=== PATIENT | female | born 1980 | race Caucasian/White ===

== ENCOUNTER 2017-12-08 21:09 | Emergency (ER) | payer BC, OTHER ==
--- NOTE | 2017-12-08 21:44 | PDOC ---
Rapid Medical Evaluation Time Seen by Provider: 12/08/17 21:41 Medical Evaluation: 12/08/17 21:41 The patient presents with a chief complaint of: Dizziness, BP high at home for five days, Had chest pain this afternoon, none upon arrival. I have performed a brief in-person evaluation of this patient. Pertinent physical exam findings: vss, [unremarkable] I have ordered the following: EKG The patient will proceed to the ED for further evaluation. Discharge Disposition - Diagnosis High blood pressure - Referrals - Patient Instructions - Post Discharge Activity
[2017-12-08 21:45] VITALS: TEMP 98.5; BMI 21.6
[2017-12-08 22:35] VITALS: BP 125/72; PULSE 66
--- NOTE | 2017-12-08 22:55 | PDOC ---
History of Present Illness - General History Source: Patient Exam Limitations: No Limitations <Guy Lugo - Last Filed: 12/08/17 23:00> <Bindu Sequeira - Last Filed: 12/08/17 23:20> - General Chief Complaint: Palpitations Stated Complaint: HIGH BP Time Seen by Provider: 12/08/17 21:41 - History of Present Illness Initial Comments: 12/08/17 22:55 The patient is a 37 year old female, with no significant past medical history, who presents to the emergency department with intermittent episodes of chills, dizziness, and nausea for approximately 5 days. Patient reports recent upper respiratory infection, with associated nasal congestion and runny nose. She endorses ocassional palpitations, but denies any associated chest pain, shortness of breath, diaphoresis or lower extremity edema. Patient describes her dizziness as if the room is spinning. Patient denies any associated head trauma, headache, photophobia, changes in vision, lightheadedness, or changes in gait. Patient states she went to a pharmacy earlier today where they obtained her blood pressure, and noted it to be subjectively elevated, so she decided to come to the ER. Patient denies any recent fever, cough, body aches, or sore throat. She denies any vomiting, diarrhea, or constipation. She denies any dysuria, hematuria, frequency, or urgency. She denies any recent travel or sick contacts. Patient reports she was taking Aspirin and Vitamin B, until about 1 week ago. Allergies: NKDA Past Surgical History: section. Social History: Non smoker. No ETOH or recreational drug use. Family History: Hypertension and Diabetes (Lugo,Giomilsy) Past History <ParishGuy - Last Filed: 12/08/17 23:00> - Past Medical History COPD: No - Immunization History Immunization Up to Date: No - Suicide/Smoking/Psychosocial Hx Smoking History: Never smoked Have you smoked in the past 12 months: No Information on smoking cessation initiated: No Hx Alcohol Use: No Drug/Substance Use Hx: No Substance Use Type: None <Bindu Sequeira - Last Filed: 12/08/17 23:20> - Past Medical History Allergies/Adverse Reactions: Allergies Allergy/AdvReac Type Severity Reaction Status Date / Time No Known Allergies Allergy Verified 12/08/17 21:45 Home Medications: Ambulatory Orders Meclizine HCl 25 mg PO TID PRN #12 tab.chew 12/08/17 Review of Systems - Review of Systems Able to Perform ROS?: Yes <Guy Lugo - Last Filed: 12/08/17 23:00> <Bindu Sequeira - Last Filed: 12/08/17 23:20> - Review of Systems Comments:: 12/08/17 22:55 CONSTITUTIONAL: Present: chills Absent: fever, no fatigue EYES: Absent: changes in vision ENT: Present: Nasal congestion, runny nose Absent: ear pain, no sore throat CARDIOVASCULAR: Present: palpitations Absent: chest pain, diaphoresis, lower extremity edema RESPIRATORY: Absent: cough, no SOB GI: Present: nausea Absent: abdominal pain, no vomiting, no constipation, no diarrhea GENITOURINARY: Absent: dysuria, no frequency, no hematuria MUSKULOSKELETAL: Absent: back pain, no arthralgia, no myalgia SKIN: Absent: rash NEURO: Present: dizziness, vertigo Absent: headache, lightheadedness (Guy Lugo) *Physical Exam <Guy Lugo - Last Filed: 12/08/17 23:00> <Bindu Sequeira - Last Filed: 12/08/17 23:20> - Vital Signs Last Vital Signs Temp Pulse Resp BP Pulse Ox 98.5 F 66 18 125/72 98 12/08/17 21:40 12/08/17 22:35 12/08/17 22:35 12/08/17 22:35 12/08/17 22:35 - Physical Exam Comments: 12/08/17 22:56 GENERAL: Well-appearing, well-nourished. No apparent distress. Hypertensive. HEENT: Normocephalic, atraumatic. PERRL, EOM intact. CARDIOVASCULAR: Normal S1, S2. Regular rate and rhythm. PULMONARY: Clear to auscultation bilaterally. ABDOMEN: Soft, non-distended, non-tender. EXTREMITIES: Normal ROM in all four extremities. No gross deformities. SKIN: Warm, dry. No rash NEUROLOGICAL: No focal neurological deficits. (Guy Lugo) Heart Score/ECG Review - Electrocardiogram EKG: Normal - Age Age: </= 45 - Risk Factors Based on the list above the patient has:: No risk factors known - ECG Intrepretation Rhythm: Regular Rhythm - [place]: Normal - P and [place] Prominent R with upright T in V1 (true posterior WI): No Delta Wave(s) Present: No WPW: No - QRS Poor R Wave Progression: No Q Wave Present: No - ST and T Early Repolarization: No Non Specific ST-T Wave changes: No Flattened T Waves: Yes - ECG Impressions Normal ECG: Yes Non-specific ST Elevation: No Ischemic Changes: No Torsades leyla Pointes: No WPW: No <Bindu Sequeira - Last Filed: 12/08/17 23:20> - Medications Given in the ED: ED Medications Discontinued Medications Generic Name Dose Route Start Last Admin Trade Name Freq PRN Reason Stop Dose Admin Meclizine HCl 25 mg 12/08/17 23:01 12/08/17 23:04 Antivert - PO 12/08/17 23:02 25 mg ONCE ONE Administration *DC/Admit/Observation/Transfer <Guy Lugo - Last Filed: 12/08/17 23:00> <Bindu Sequeira - Last Filed: 12/08/17 23:20> Diagnosis at time of Disposition: Vertigo URI (upper respiratory infection) Qualifiers: URI type: unspecified URI Qualified Code(s): J06.9 - Acute upper respiratory infection, unspecified - Discharge Dispostion Disposition: HOME Condition at time of disposition: Stable - Patient Instructions Printed Discharge Instructions: DI for Benign Paroxysmal Positional Vertigo, DI for Viral Upper Respiratory Infection -- Adult Additional Instructions: You may find taking an over the counter nasal decongestant may help your symptoms Follow up with your regular physician Meclizine is a medicine that is for positional dizziness and you can picker tender helper this medicine at the pharmacy If you develop chest pain that causes shortness of breath, pain radiating to your arm or jaw, return to ER immediately - Attestations Scribe Attestion: 12/08/17 22:56 Documentation prepared by Guy Lugo, acting as medical researcher for Bindu Sequeira MD. (Guy Lugo) NIH Stroke Scale - Initial Evaluation Level of consciousness: Alert Ask patient the month and their age: Answers both correctly Ask patient to open & close eyes; make fist and let go: Obeys both correctly Best gaze (horizontal eye movement): Normal Visual field testing: No visual field loss Facial paresis (Show teeth/raise eyebrows/close eyes tight): Normal symmetrical movement Motor Function: Left Arm: Normal Motor Function: Right Arm: Normal (extends arm 90 (or 45) degrees for 10 seconds without drift Motor Function: Left Leg: Normal (extends leg 30 degrees for 5 seconds without drift) Motor Function: Right Leg: Normal (extends leg 30 degrees for 5 seconds without drift) Limb Ataxia: No ataxia Sensory(Use pinprick test arms,legs,trunk,face/side to side): Normal Best language (Describe picture, name items, read sentences): No Aphasia Dysarthria (read several words): Normal articulation Extinction and Inattention: No abnormality (pt has vertigo,no focal neuro deficits noted) - Total Score NIH Stroke Scale Score: 0 <Bindu Sequeira - Last Filed: 12/08/17 23:20>
[2017-12-08] MEDS ORDERED: MECLIZINE HCL 25 MG TABLET (FP) PO ONE (23:01)
[2017-12-08] MEDS ORDERED: MECLIZINE HCL 25 MG TABLET (FP) ONE (23:02)
--- NOTE | 2017-12-09 16:42 | EKG ---
Test Reason : Blood Pressure : / mmHG Vent. Rate : 063 BPM Atrial Rate : 063 BPM P-R Int : 170 ms QRS Dur : 068 ms QT Int : 406 ms P-R-T Axes : 059 039 026 degrees QTc Int : 415 ms NORMAL SINUS RHYTHM SEPTAL INFARCT , AGE UNDETERMINED ABNORMAL ECG NO PREVIOUS ECGS AVAILABLE Confirmed by MD Khushboo, Benji ([id number]) on 12/09/2017 4:41:49 PM Referred By: Confirmed By:Benji Cuello MD
== END 2017-12-08 23:28 | disposition home or self-care (01) ==
LOC: JER 21:09
DX: H81.10 Benign paroxysmal vertigo, unspecified ear (principal); J06.9 Acute upper respiratory infection, unspecified
CPT/HCPCS: 93005; 93010; 99282-25